=== PATIENT | male | born 1985 | race African-American/Black ===

== ENCOUNTER 2016-10-18 11:37 | Emergency (ER) | payer BC ==
[~2016-10-18] VITALS: Ht 193 cm; Wt 89.8 kg
[2016-10-18 11:37] VITALS: BP 138/91
[~2016-10-18 11:37] MED LIST: IBUPROFEN 600600 M1 PO
[2016-10-18] MEDS ORDERED: IBUPROFEN 600600 M1 PO (13:33)
[2016-10-18] MEDS ORDERED: CYCLOBENZAPRINE5 MG PO (13:33)
== END 2016-10-18 14:05 | disposition home or self-care (01) ==
LOC: ER 11:37
DX: S39.012A Strain of muscle, fascia and tendon of lower back, initial encounter (principal); F10.99 Alcohol use, unspecified with unspecified alcohol-induced disorder; X58.XXXA Exposure to other specified factors, initial encounter; Y93.89 Activity, other specified; Y92.89 Other specified places as the place of occurrence of the external cause; Y99.8 Other external cause status

== ENCOUNTER 2016-11-26 15:19 | Emergency (ER) | payer BC ==
[~2016-11-26] VITALS: Ht 190.5 cm; Wt 89.8 kg
[~2016-11-26 15:19] MED LIST changes: +CYCLOBENZAPRINE5 MG PO
[2016-11-26 16:04] VITALS: BP 144/89
[2016-11-26] MEDS ORDERED: NORFLEX100 MG PO (16:18)
[2016-11-26] MEDS ORDERED: NAPROSYN500 MG PO (16:18)
== END 2016-11-26 16:28 | disposition home or self-care (01) ==
LOC: ER 15:19
DX: S39.012A Strain of muscle, fascia and tendon of lower back, initial encounter (principal); F10.99 Alcohol use, unspecified with unspecified alcohol-induced disorder; Z98.890 Other specified postprocedural states; X50.9XXA Other and unspecified overexertion or strenuous movements or postures, initial encounter; Y93.89 Activity, other specified; Y92.89 Other specified places as the place of occurrence of the external cause; Y99.8 Other external cause status

== ENCOUNTER 2017-04-30 16:57 | Emergency (ER) | payer OTHER ==
[~2017-04-30] VITALS: Ht 190.5 cm; Wt 88.5 kg
[~2017-04-30 16:57] MED LIST changes: +NAPROSYN500 MG PO; +NORFLEX100 MG PO
== END 2017-04-30 18:10 | disposition home or self-care (01) ==
LOC: ER 16:57
DX: S09.90XA Unspecified injury of head, initial encounter (principal); S16.1XXA Strain of muscle, fascia and tendon at neck level, initial encounter; S39.012A Strain of muscle, fascia and tendon of lower back, initial encounter; W10.9XXA Fall (on) (from) unspecified stairs and steps, initial encounter; Y93.89 Activity, other specified; Y92.89 Other specified places as the place of occurrence of the external cause; Y99.8 Other external cause status

== ENCOUNTER 2018-11-09 18:49 | Emergency (ER) | payer OTHER ==
[~2018-11-09] VITALS: Ht 190.5 cm; Wt 90.7 kg
[2018-11-09 20:18] LABS: HEMATOCRIT 44.9 % (42.0-52.0); HEMOGLOBIN 14.9 gm/dL (14.0-18.0); MCH 28.5 pg (26.0-34.0); MCHC 33.1 g/dL (28.0-37.0); MCV 86.2 fL (80.0-100.0); PLATELET COUNT 315 thou/uL (150-400); RBC 5.21 mil/uL (4.50-6.00); WBC 5.7 thou/uL (4.0-11.0)
[2018-11-09 20:26] LABS: CALCIUM 9.5 mg/dL (8.5-10.1); POTASSIUM 3.4 mmol/L (3.5-5.1)
[2018-11-09 20:28] LABS: URINE BLOOD NEGATIVE (Negative); URINE CLARITY CLEAR; URINE COLOR YELLOW; URINE GLUCOSE-RANDOM* NEGATIVE (Negative); URINE KETONES NEGATIVE (Negative); URINE NITRITE-REFLEX NEGATIVE (Negative); URINE PROTEIN (DIPSTICK) NEGATIVE (Negative); URINE SPECIFIC GRAVITY >= 1.030 (1.005-1.035); URINE UROBILINOGEN 0.2 E.U./dl (0.2-1.0)
[2018-11-09 20:29] LABS: ICTOTEST (BILI CONFIRMATORY) Negative (Negative); URINE BILIRUBIN NEGATIVE (Negative); URINE LEUKOCYTES-REFLEX 1+ (Negative)
[2018-11-09 20:31] LABS: ALBUMIN 4.1 g/dL (3.4-5.0); MAGNESIUM 2.1 mg/dL (1.8-2.4); TOTAL BILIRUBIN 0.7 mg/dL (<0.1-1.0); TOTAL PROTEIN 8.3 g/dL (6.4-8.2)
[2018-11-09 20:38] LABS: BACTERIA-REFLEX 1-9 Few /HPF (None Seen); CASTS None Seen /LPF (None Seen); CRYSTALS None Seen /LPF (None Seen); SQUAMOUS None Seen /LPF (0-3); URINE RBC None Seen /HPF (0-2); URINE WBC-REFLEX 6-15 Few /HPF (0-5)
[2018-11-09 20:43] LABS: ABSOLUTE NEUTROPHILS 2.4 thou/uL (1.4-8.2); ANISOCYTOSIS 1+
[2018-11-09] MEDS ORDERED: MACROBID 100 M100 M1 PO (21:37)
[2018-11-09] MEDS ORDERED: ATIVAN0.5 MG PO (21:37)
[2018-11-09 21:46] VITALS: BP 156/102
--- NOTE | 2018-11-10 13:40 | EKG ---
[address] [address] [place] [address] ELECTROCARDIOGRAM REPORT Name: VIRGINIAREJI Room #: LUX Souza#: [id number] Admission: 11/09/18 Attend Phys: Discharge: 11/09/18 Date of : 83 Report #: [id number] THIS REPORT FOR: //name// [facility] ED Test Date: 2018-11-09 Test Time: 20:01:19 Pat Name: REJI COLEMAN Department: Room: Gender: M [employer] Administrator: RENEA : 1985 Requested By: Magdalena Milton Order Number: [id number] MD: Moi Hawk Measurements Intervals [place] Rate: 68 P: 72 SD: 160 QRS: 55 QRSD: 97 T: 23 QT: 368 QTc: 392 Interpretive Statements Sinus rhythm Nonspecific T-wave abnormalities No previous ECG available for comparison Electronically Signed On 11-10-2018 13:40:03 CDT by Moi Hawk [email or web address] <ELECTRONICALLY SIGNED> By: Moi Hawk MD 11/10/18 1340 00 00 Moi Hawk MD /EPI
== END 2018-11-09 21:47 | disposition home or self-care (01) ==
LOC: ER 18:49
PROVIDERS: Physician Assistant
DX: N39.0 Urinary tract infection, site not specified (principal); F41.9 Anxiety disorder, unspecified; R20.2 Paresthesia of skin

== ENCOUNTER 2020-08-17 16:21 | Emergency (ER) | payer OTHER ==
[~2020-08-17] VITALS: Ht 190.5 cm; Wt 93.9 kg
[~2020-08-17 16:21] MED LIST changes: +ATIVAN0.5 MG PO; +MACROBID 100 M100 M1 PO
[2020-08-17 16:30] VITALS: BP 167/97
[2020-08-17] MEDS ORDERED: CLARITIN10 M3 PO (16:35)
[2020-08-17] MEDS ORDERED: IBUPROFEN 600600 M1 PO (17:40)
== END 2020-08-17 17:56 | disposition home or self-care (01) ==
LOC: ER 16:21
DX: S76.921A Laceration of unspecified muscles, fascia and tendons at thigh level, right thigh, initial encounter (principal); X50.1XXA Overexertion from prolonged static or awkward postures, initial encounter; Y93.61 Activity, american tackle football; Y92.89 Other specified places as the place of occurrence of the external cause; Y99.8 Other external cause status